=== PATIENT | male | born 1965 | race American Indian/Alaskan Native ===

== ENCOUNTER 2016-06-23 00:55 | Emergency (ER) | payer MEDICAID ==
[2016-06-23] MEDS ORDERED: MVI, Adult with Vitamin K 10 ML, Thiamine 100 MG, Folic Acid 1 MG in Lactated Ringers 1... IV ONE ×4 (01:22)
--- NOTE | 2016-06-23 01:34 | EDM.PDOC ---
ED HPI Behavioral Health - General Chief Complaint: Drug or Alcohol Abuse Stated Complaint: WITHDRAWLS Time Seen by Provider: 06/23/16 01:24 Source of Information: Reports: Patient Exam Limitations: Reports: No limitations - History of Present Illness INITIAL COMMENTS - FREE TEXT/NARRATIVE: Pt told RN feeling of depression and thinking of self harm but upon questioning Pt about these issues and the lack of services in [facility] to handle these on a weekend night Pt denied he has any intention of self harm. admits to feeling depressed due to inability to stop drinking. discussed with Pt re human services Friday-Friday which he states he will look into. presently c/o right side abd' pain on off for unknown time period. - Related Data Allergies Allergy/AdvReac Type Severity Reaction Status Date / Time No Known Allergies Allergy Verified 06/23/16 00:59 Home Medications: Home Meds QUEtiapine [SEROquel] 06/23/16 [History] traMADol [Ultram] 06/23/16 [History] Right Abdomen Pain Score (Numeric/FACES): 4 Past Medical History Musculoskeletal History: Reports: Fracture Psychiatric History: Reports: Depression - Past Surgical History Musculoskeletal Surgical History: Reports: Other (see below) Other Musculoskeletal Surgeries/Procedures:: surgery on hip fx Social & Family History - Tobacco Use Smoking Status *Q: Current Every Day Smoker Years of Tobacco use: 25 Packs/Tins Daily: 0.5 - Caffeine Use Caffeine Use: Reports: Soda - Recreational Drug Use Recreational Drug Use: Yes Recreational Drug Type: Reports: Marijuana/Hashish ED ROS GENERAL - Review of Systems Review Of Systems: ROS reveals no pertinent complaints other than HPI. ED EXAM, BEHAVIORAL HEALTH - Physical Exam Exam: See Below Exam Limited By: No limitations General Appearance: alert, WD/WN, no apparent distress, other (intox but co-op) Eye Exam: bilateral eye: PERRL (pupils ess ER @ 4mm) Ears: hearing grossly normal Throat/Mouth: Normal voice, No airway compromise Head: atraumatic Neck: non-tender, full range of motion Respiratory/Chest: no respiratory distress, lungs clear, normal breath sounds Cardiovascular: regular rate, rhythm GI/Abdominal: soft, non tender, other (minimal splinting to deep palpation periumb region.BS hyper (states he hadn't eaten)). No: distended, guarding, rigid, rebound Neurological: alert, normal cognition, no motor/sensory deficits, oriented x 3 Psychiatric: flat affect Skin Exam: Warm, Dry COURSE, BEHAVIORAL HEALTH COMP - Course Vital Signs: Last Vital Signs Temp 35.7 C 06/23/16 01:10 Pulse 87 06/23/16 01:37 Resp 18 06/23/16 01:37 BP 101/71 06/23/16 01:37 Pulse Ox 96 06/23/16 01:37 Orders, Labs, Meds: Active Orders 24 hr Category Date Time Status MVI, Adult with Vitamin K [Infuvite Adult] 10 ml Med 06/23/16 01:22 Active Thiamine [Vitamin B-1] 100 mg Folic Acid 1 mg Lactated Ringers [Ringers, Lactated] 1,000 ml IV .BOLUS Medication Orders Multivitamins/Minerals 10 ml/Thiamine HCl 100 mg/ Folic Acid 1 mg/ Lactated Ringer's 1,011.2 mls @ 999 mls/hr IV .BOLUS ONE Stop: 06/23/16 02:22 Last Admin: 06/23/16 01:32 Dose: 999 mls/hr Laboratory Tests 06/23/16 06/23/16 06/23/16 Range/Units 01:27 01:27 01:27 WBC 8.6 (5.0-10.0) 10^3/uL RBC 5.51 (4.6-6.2) 10^6/uL Hgb 16.0 (14.0-18.0) g/dL Hct 46.1 (40.0-54.0) % MCV 83.7 (80-100) fL MCH 29.0 (27.0-34.0) pg MCHC 34.7 (33.0-35.0) g/dL Plt Count 178 (150-450) 10^3/uL Neut % (Auto) 59.7 (42.2-75.2) % Lymph % (Auto) 26.8 (20.5-50.1) % [place] % (Auto) 12.2 H (2-8) % Eos % (Auto) 0.8 L (1.0-3.0) % Baso % (Auto) 0.5 (0.0-1.0) % Sodium 139 (135-145) mmol/L Potassium 4.1 (3.6-5.0) mmol/L Chloride 103 (101-111) mmol/L Carbon Dioxide 26.0 (21.0-31.0) mmol/L Anion Gap 14.1 BUN 14 (7-18) mg/dL Creatinine 0.9 (0.6-1.3) mg/dL Est Cr Clr Drug Dosing TNP Estimated GFR (MDRD) > 60 BUN/Creatinine Ratio 15.55 Glucose 114 H (74-105) mg/dL Calcium 8.6 (8.4-10.2) mg/dl Total Bilirubin 1.2 H (0.2-1.0) mg/dL AST 70 H (10-42) IU/L ALT 41 (10-60) IU/L Alkaline Phosphatase 57 (42-121) IU/L Total Protein 8.0 (6.7-8.2) g/dl Albumin 4.5 (3.2-5.5) g/dl Globulin 3.5 Albumin/Globulin Ratio 1.29 Amylase 64 (28-100) U/L Lipase 50 (22-51) U/L Ethyl Alcohol 196 mg/dL Medications Generic Name Dose Route Start Last Admin Trade Name Freq PRN Reason Stop Dose Admin Multivitamins/Minerals 10 ml/ 1,011.2 mls @ 999 mls/hr 06/23/16 01:22 01:32 Thiamine HCl 100 mg/ Folic IV 06/23/16 02:22 999 mls/hr Acid 1 mg/ Lactated Ringer's .BOLUS ONE Administration Re-Assessment/Re-Exam: Pt snoring, arousable, no c/o. results discussed with Pt. Departure - Departure Time of Disposition: 02:16 Disposition: Home, Self-Care 01 Condition: good Clinical Impression: Alcohol abuse Instructions: Alcohol Intoxication, [id number] Forms: ED Department Discharge Additional Instructions: 1) avoid drinking too much alcohol 2) call Human Services Friday for alcohol related problems 3) recheck as needed - My Orders Last 24 Hours: My Active Orders 06/23/16 01:22 MVI, Adult with Vitamin K [Infuvite Adult] 10 ml Thiamine [Vitamin B-1] 100 mg Folic Acid 1 mg Lactated Ringers [Ringers, Lactated] 1,000 ml IV .BOLUS - Assessment/Plan Last 24 Hours: My Active Orders 06/23/16 01:22 MVI, Adult with Vitamin K [Infuvite Adult] 10 ml Thiamine [Vitamin B-1] 100 mg Folic Acid 1 mg Lactated Ringers [Ringers, Lactated] 1,000 ml IV .BOLUS
[2016-06-23 01:55] LABS: CHLORIDE,CL 103 mmol/L (101-111); SODIUM,NA 139 mmol/L (135-145)
[2016-06-23 11:11] VITALS: BP 101/71
== END 2016-06-23 02:32 | disposition home or self-care (01) ==
LOC: DL.ED 00:55
DX: F10.10 Alcohol abuse, uncomplicated (principal); F32.9 Major depressive disorder, single episode, unspecified; F17.210 Nicotine dependence, cigarettes, uncomplicated; Y90.6 Blood alcohol level of 120-199 mg/100 ml
CPT/HCPCS: 36415; 80053; 82150; 83690; 85025; 96365; 99284; G0480; J3411; J7120; J3490